=== PATIENT | female | born 1955 | race Caucasian/White ===

== ENCOUNTER 2019-05-25 12:14 | Emergency (ER) | payer MEDICARE, OTHER ==
[~2019-05-25] VITALS: Ht 172.7 cm; Wt 70.3 kg
[2019-05-25] MEDS ORDERED: SYMBICORT 80-10.2 GM INH (12:28)
[2019-05-25] MEDS ORDERED: SPIRIVA18 MCG INH (12:28)
[2019-05-25] MEDS ORDERED: HYDROCODON-ACE1 EAC8 PO (12:29)
== END 2019-05-25 13:18 | disposition home or self-care (01) ==
LOC: ED 12:14
DX: G89.29 Other chronic pain (principal); M25.50 Pain in unspecified joint; F17.200 Nicotine dependence, unspecified, uncomplicated; Z88.0 Allergy status to penicillin
CPT/HCPCS: 99281; 99406

== ENCOUNTER 2021-09-03 08:13 | Emergency (ER) | payer MEDICARE, OTHER ==
[~2021-09-03] VITALS: Ht 172.7 cm; Wt 83.9 kg
[~2021-09-03 08:13] MED LIST: HYDROCODON-ACE1 EAC8 PO; SPIRIVA18 MCG INH; SYMBICORT 80-10.2 GM INH; WELLBUTRIN XL300 MG PO
[2021-09-03] MEDS ORDERED: FAMCICLOVIR500 MG PO (08:28)
[2021-09-03] MEDS ORDERED: HYDROCODON-ACE1 EA10 PO (08:28)
== END 2021-09-03 08:36 | disposition home or self-care (01) ==
LOC: ED 08:13
DX: B02.9 Zoster without complications (principal); F17.200 Nicotine dependence, unspecified, uncomplicated; Z88.5 Allergy status to narcotic agent; Z79.899 Other long term (current) drug therapy
CPT/HCPCS: 99282

== ENCOUNTER 2025-02-06 15:32 | Emergency (ER) | payer MEDICARE, OTHER ==
[~2025-02-06] VITALS: Ht 172.7 cm; Wt 81.0 kg
[~2025-02-06 15:32] MED LIST changes: +FAMCICLOVIR500 MG PO; +HYDROCODON-ACE1 EA10 PO
[2025-02-06 15:46] LABS: BASOPHILS 0.9 % (0.1-1.2); EOSINOPHILS 1.4 % (0.7-5.8); HEMATOCRIT 38.5 % (34.1-44.9); HEMOGLOBIN 12.7 g/dL (11.2-15.7); LYMPHOCYTES 23.6 % (19.3-51.7); MCH 31.4 PG (25.6-32.2); MCV 95.3 fL (79.4-94.8); MONOCYTES 11.3 % (4.7-12.5); NEUTROPHILS 62.6 % (34.0-71.1); PLATELET COUNT 354 K/uL (182-369); RBC 4.04 M/uL (3.93-5.22)
[2025-02-06 16:02] LABS: ALBUMIN 3.4 g/dL (3.4-5.0); ALBUMIN/GLOBULIN RATIO 1.1 (1.1-2.4); ANION GAP 13.5 (7-21); BILIRUBIN, TOTAL 0.5 mg/dL (0.2-1.0); BUN/CREATININE RATIO 6.93 (6.0-28.6); CALCIUM 8.2 mg/dL (8.5-10.1); CREATININE, SERUM 1.01 mg/dL (0.55-1.02); POTASSIUM 3.5 mmol/L (3.5-5.1); PROTEIN, TOTAL 6.5 g/dL (6.4-8.2)
[2025-02-06 17:51] VITALS: BP 147/82
--- NOTE | 2025-02-06 21:42 | EKG ---
[facility] [address] [facility] [place] [address] Signed Atrial fibrillation with rapid ventricular response Right bundle branch block Abnormal ECG When compared with ECG of 20-AUG-2021 09:33, Atrial fibrillation has replaced Sinus rhythm QRS duration has increased T wave inversion now evident in Anterior leads Confirmed by Tad Crane MD () on 02/06/2025 9:42:03 PM Electronically Signed By: TAD CRANE MD 02/06/25 [id number] PATIENT NAME: ORLY MEEKS Electrocardiogram DATE OF : 53 PHYSICIAN: TAD CRANE MD REPORT #: [id number] REPORT IS CONFIDENTIAL AND NOT TO BE RELEASED WITHOUT AUTHORIZATION
== END 2025-02-06 17:51 | disposition home or self-care (01) ==
LOC: ED 15:32
PROVIDERS: Emergency Medicine
DX: R55 Syncope and collapse (principal); S09.90XA Unspecified injury of head, initial encounter; F17.200 Nicotine dependence, unspecified, uncomplicated; W19.XXXA Unspecified fall, initial encounter; Z79.51 Long term (current) use of inhaled steroids; Z88.5 Allergy status to narcotic agent
CPT/HCPCS: 36415; 70450; 72125; 80053; 85025; 93005; 93010; 99284-25; G0480